=== PATIENT | female | born 1995 | race Caucasian/White ===

== ENCOUNTER 2017-12-04 00:41 | Emergency (ER) | payer MEDICAID ==
[~2017-12-04] VITALS: Ht 157.5 cm; Wt 56.7 kg
[2017-12-04 00:54] VITALS: BP 122/68
[2017-12-04 01:25] LABS: APPEARANCE,URINE CLOUDY (CLEAR); BILIRUBIN,URINE NEGATIVE (NEGATIVE); BLOOD, URINE 3+ Ery/uL (NEGATIVE); COLOR,URINE YELLOW (YELLOW); KETONES,URINE NEGATIVE (NEGATIVE); LEUKOCYTE ESTERASE ,URINE 1+ (NEGATIVE); NITRITE, URINE NEGATIVE (NEGATIVE); PH,URINE 6.5 (5.0-8.0); PROTEIN,URINE 2+ mg/dl (NEGATIVE); UGLUCOSE NEGATIVE (NEGATIVE); UROBILINOGEN,URINE 0.2 EU/dL (0.2)
[2017-12-04 01:30] LABS: RBC,URINE 21-50 /HPF (0-2); WBC,URINE 51-80 /HPF (0-3)
[2017-12-04 01:31] LABS: BACTERIA,URINE Moderate /HPF (None Seen); SQUAMOUS EPITHELIAL CELL,UR Few /HPF (None Seen)
[2017-12-04] MEDS ORDERED: ACETAMINOPHEN 650 MG/20.3 ML UDC ONE (01:32)
[2017-12-04] MEDS: ACETAMINOPHEN 650 MG/20.3 ML UDC PO STA (01:36)
[2017-12-04] MEDS ORDERED: CEFTRIAXONE 500 MG VIAL ONE (01:50)
[2017-12-04] MEDS ORDERED: LIDOCAINE /MPF 1% VIAL 5 ML VIAL ONE (01:50)
[2017-12-04] MEDS ORDERED: AZITHROMYCIN 250 MG TABLET ONE (01:51)
[2017-12-04] MEDS: LIDOCAINE 1% INJ 50 ML MDV IJ ONE (01:56)
[2017-12-04] MEDS: AZITHROMYCIN 250 MG TABLET PO STA (01:56)
[2017-12-04] MEDS: CEFTRIAXONE 1 G VIAL IM ONE (01:57)
== END 2017-12-04 02:50 | disposition home or self-care (01) ==
LOC: ER 00:41
DX: N39.0 Urinary tract infection, site not specified (principal)
CPT/HCPCS: 81000-TC; 84703-TC; 87086-TC; 87186-TC; 87491; 87591; A4606; J0696; J3490; Z7610